=== PATIENT | female | born 1980 | race American Indian/Alaskan Native ===

== ENCOUNTER 2021-06-11 07:15 | Emergency (ER) | payer SELFPAY ==
--- NOTE | 2021-06-11 07:57 | Emergency Department Report ---
Stated Complaint: TOOTHACHE, PAIN MEDS MADE SICK Time Seen by Provider: 06/11/21 07:49 - HPI History of Present Illness: 41 YO AA FEMALE COMES TO ER WITH SEVERAL DAY HISTORY OF LEFT LOWER MOLAR DENTAL PAIN NO FEVER OR CHILLS DID NOT SEE DENTIST TOOK MOTRIN LAST NIGHT WITH NO RELIEF - ROS Review of Systems: NEURO; NO COMPLAINT ENT- L LOWER MOLAR DENTAL PAIN; NO TRAUMA NO FEVER CV NO COMPLAINTS RESP NO COMPLAINTS GI NAUSEA WITH MOTRIN NO COMPLAINTS - Exam Vital Signs: NORMAL DOCUMENTED BY RN Physical Exam: ABC INTACT CONTROLLING SECRETIONS NO LUDWIGS NO ABSCESS CARIES LOWER LEFT MOLAR; NO GINGIVAL SWELLING S1S2 LUNGS CTA ABD SNT AMBULATORY AND IN NAD MSE screening note: Focused history and physical exam performed. Due to findings the following was ordered: NO LIFE THREAT ON EXAM MSE TO DMD; WHILE IN ER SHE CALLED DMD AND LEFT ER TO SEE HIM Patient discussed with doctor:: SONYA JHAVERI ED Medical Decision Making - Medical Decision Making VSS ABC INTACT NO ABSCESS TAKING PO/CONTROLLING SECRETIONS NO LUDWIGS Vital Signs 06/11/21 07:44 Temperature 98.2 F Pulse Rate 80 Respiratory 18 Rate Blood Pressure 134/99 O2 Sat by Pulse 99 Oximetry - Differential Diagnosis DENTAL PAIN ED Disposition for MSE Clinical Impression: Pain, dental Disposition: 01 HOME / SELF CARE / HOMELESS Is pt being admited?: No Does the pt Need Aspirin: No Condition: Stable Instructions: Acute Pain, Adult Additional Instructions: CONTINUE MOTRIN AND TYLENOL FOR PAIN FOLLOW UP WITH DMD FOR YOUR DENTAL CARE REFERRALS LISTED BELOW ALSO ATTACHED IS A PCP FOR YOUR USE [facility] TREATS DENTAL PAIN AT A NOMINAL CHARGE [phone] Referrals: [facility] [Outside] - 3-5 Days [facility] [Outside] - 3-5 Days Forms: Work/School Release Form(ED) Time of Disposition: 07:54
[2021-06-11 08:00] VITALS: BP 134/99
== END 2021-06-11 08:15 | disposition home or self-care (01) ==
LOC: ED 07:15
DX: K08.89 Other specified disorders of teeth and supporting structures (principal)
CPT/HCPCS: 99282